=== PATIENT | female | born 1980 | race Caucasian/White ===

== ENCOUNTER 2016-09-12 18:31 | Emergency (ER) | payer OTHER ==
[2016-09-12] MEDS ORDERED: PENICILLIN BENZATHINE 1.2 MU 1.2 MU/2 ML SYG IM ONE (19:14)
--- NOTE | 2016-09-12 19:41 | ED.PDOC ---
History of Present Illness - General Chief Complaint: General Stated Complaint: medical clearance Time Seen by Provider: 09/12/16 18:34 Source: patient Exam Limitations: intoxication - History of Present Illness Initial Comments: Patient presents for medical clearance for her weekend admission to nursing home. She appears intoxicated and says that she drank some nyquil for a cold. She has had a URI for several days and a sore throat. No other complaints. Timing/Duration: other - 3 days for the sore throat Severity: moderate Improving Factors: nothing Worsening Factors: nothing Associated Symptoms: denies symptoms Allergies/Adverse Reactions: Allergies Acetaminophen [From Tylenol] Allergy (Unknown, Unverified 07/21/16 12:06) Hydrocodone Allergy (Unknown, Unverified 07/21/16 12:06) Home Medications: Ambulatory Orders Blue Pill For Anxiety And Blood Pressure 09/12/16 Medroxyprogesterone Acetate (C [Depo-Provera Contraceptiv] 150 mg IM 09/12/16 Paxil 09/12/16 Xanax 09/12/16 Review of Systems - Review of Systems Constitutional: States: no symptoms reported EENTM: States: see HPI Respiratory: States: no symptoms reported Cardiology: States: no symptoms reported Gastrointestinal/Abdominal: States: no symptoms reported Genitourinary: States: no symptoms reported Musculoskeletal: States: no symptoms reported Skin: States: no symptoms reported Neurological: States: no symptoms reported Endocrine: States: no symptoms reported Hematologic/Lymphatic: States: no symptoms reported Past Medical History (General) - Patient Medical History Hx Seizures: No Hx Stroke: No Hx Dementia: No Hx Asthma: No Hx of COPD: No Hx Cardiac Disorders: No Hx Congestive Heart Failure: No Hx Pacemaker: No Hx Hypertension: No Hx Thyroid Disease: No Hx Diabetes: No Hx Gastroesophageal Reflux: No Hx Renal Disease: No Hx Cancer: No Hx of HIV: No Hx Hepatitis C: No Hx MRSA: No - Vaccination History Hx Tetanus, Diphtheria Vaccination: No Hx Influenza Vaccination: No Hx Pneumococcal Vaccination: No - Social History Hx Tobacco Use: Yes Hx Chewing Tobacco Use: No Hx Alcohol Use: No Hx Substance Use: No Hx Substance Use Treatment: No Hx Depression: No Hx Physical Abuse: No Hx Emotional Abuse: No Hx Suspected Abuse: No - Female History Patient is a Female of Child Bearing Age (10 -59 yrs old): Yes Patient : No - Triage Comment ED Triage Comment: takes depo shot Family Medical History - Family History Mother Family History: No Known Physical Exam - Physical Exam General Appearance: Alert Eye Exam: bilateral normal Ears, Nose, Throat: normal ENT inspection Neck: non-tender, full range of motion, supple Respiratory: lungs clear Cardiovascular/Chest: regular rate, rhythm Gastrointestinal/Abdominal: normal bowel sounds, non tender, soft Back Exam: normal inspection, no CVA tenderness Extremity: normal range of motion, non-tender, normal inspection Neurologic: no motor/sensory deficits Skin Exam: normal color Lymphatic: no adenopathy Progress - Progress Progress: 09/12/16 19:52 BAL 279 serum salicylates and acetominophen negative. Departure - Departure Clinical Impression: Alcoholic intoxication Disposition: [facility] Condition: Good Departure Forms: ED Discharge - Pt. Copy, Patient Portal Self Enrollment Diet: resume usual diet Activity: increase activity as tolerated Home Medications: Ambulatory Orders Blue Pill For Anxiety And Blood Pressure 09/12/16 Medroxyprogesterone Acetate (C [Depo-Provera Contraceptiv] 150 mg IM 09/12/16 Paxil 09/12/16 Xanax 09/12/16 Additional Instructions: Continue current medication regimen.
[2016-09-12 20:18] VITALS: BP 113/81; TEMP 97.3; O2SAT 95
== END 2016-09-12 20:17 ==
LOC: ER 18:31
DX: Z02.89 Encounter for other administrative examinations (principal); F10.129 Alcohol abuse with intoxication, unspecified; Y90.8 Blood alcohol level of 240 mg/100 ml or more; Z88.6 Allergy status to analgesic agent; Z87.891 Personal history of nicotine dependence; Z79.899 Other long term (current) drug therapy
CPT/HCPCS: 80320; 80329; 87880; J0561

== ENCOUNTER 2016-12-31 21:45 | Emergency (ER) | payer OTHER ==
[2016-12-31 22:03] VITALS: O2SAT 97
--- NOTE | 2016-12-31 22:15 | ED.PDOC ---
History of Present Illness - General Chief Complaint: Skin/Abrasion/Tear Stated Complaint: abcess to left forehead Time Seen by Provider: 12/31/16 22:08 Source: patient Exam Limitations: no limitations - History of Present Illness Initial Comments: Tiffany Chen 36 y/o female noted redness and swelling 3 days ago which gradually got worse noting swelling on her upper part of face. Timing/Duration: other - 3 days ago Severity: moderate Location: face - forehead Improving Factors: nothing Worsening Factors: nothing Associated Symptoms: other - abscess forehead Allergies/Adverse Reactions: Allergies Acetaminophen [From Tylenol] Allergy (Unknown, Verified 12/31/16 22:03) Hydrocodone Allergy (Unknown, Verified 12/31/16 22:03) Home Medications: Ambulatory Orders Medroxyprogesterone Acetate (C [Depo-Provera Contraceptiv] 150 mg IM 09/12/16 ALPRAZolam [Xanax] 0.5 mg PO TID 12/31/16 Ciprofloxacin [Cipro] 500 mg PO BID 12/31/16 Doxycycline Hyclate 100 mg PO BID #20 cap 12/31/16 Ibuprofen [Motrin] 400 mg PO PRN 12/31/16 Omeprazole Magnesium [Prilosec Otc] 20 mg PO QAM 12/31/16 PARoxetine HCL [Paxil] 20 mg PO DAILY 12/31/16 Propranolol HCl [Inderal] 20 mg PO BID 12/31/16 Tramadol HCl 50 mg PO TID PRN #7 tab 12/31/16 Review of Systems - Review of Systems Constitutional: States: no symptoms reported EENTM: States: no symptoms reported Respiratory: States: no symptoms reported Cardiology: States: no symptoms reported Gastrointestinal/Abdominal: States: no symptoms reported Genitourinary: States: no symptoms reported Musculoskeletal: States: no symptoms reported Skin: States: see HPI Neurological: States: no symptoms reported Past Medical History (General) - Patient Medical History Hx Seizures: No Hx Stroke: No Hx Dementia: No Hx Asthma: No Hx of COPD: No Hx Cardiac Disorders: No Hx Congestive Heart Failure: No Hx Pacemaker: No Hx Hypertension: No Hx Thyroid Disease: No Hx Diabetes: No Hx Gastroesophageal Reflux: No Hx Renal Disease: No Hx Cancer: No Hx of HIV: No Hx Hepatitis C: No Hx MRSA: No Surgical History: no surgical history - Vaccination History Hx Tetanus, Diphtheria Vaccination: No Hx Influenza Vaccination: No Hx Pneumococcal Vaccination: No Immunizations Up to Date: No - Social History Hx Tobacco Use: Yes Hx Chewing Tobacco Use: No Hx Alcohol Use: Yes Hx Substance Use: No Hx Substance Use Treatment: No Hx Depression: No Feels Threatened In Home Enviroment: No Feels Threatened In a Relationship: No Hx Physical Abuse: No Hx Emotional Abuse: No Hx Suspected Abuse: No - Female History Patient is a Female of Child Bearing Age (10 -59 yrs old): Yes Patient : No - Triage Comment ED Triage Comment: is on Depo shot, LMP 3 years ago Family Medical History - Family History Mother Family History: No Known Living Status: Still Living Physical Exam - Physical Exam General Appearance: Alert, No apparent distress Eyes, Ears, Nose, Throat Exam: PERRL/EOMI, normal ENT inspection, TMs normal Neck: non-tender, full range of motion, supple Cardiovascular/Chest: normal peripheral pulses, regular rate, rhythm, no murmur Respiratory: chest non-tender, lungs clear, normal breath sounds Gastrointestinal/Abdominal: normal bowel sounds, non tender, soft Back Exam: normal inspection, no CVA tenderness Extremity: normal range of motion Neurologic: alert, oriented x 3 Skin Exam: warm/dry Skin Problem Location: face - forehead Skin Character: abscess, erythema, tenderness Lymphatic: no adenopathy Progress - Results/Orders Results/Orders: 12/31/16 23:28 WOUND CULTURE Stat Laboratory Results WBC 7.9 K/mm3 (4.8-10.8) 12/31/16 22:40 RBC 4.06 M/mm3 (4.20-5.40) L 12/31/16 22:40 Hgb 12.8 gm/dL (12.0-16.0) 12/31/16 22:40 Hct 38.2 % (36.0-47.0) 12/31/16 22:40 MCV 93.9 fl (81.0-99.0) 12/31/16 22:40 MCH 31.5 pg (27.0-31.0) H 12/31/16 22:40 MCHC 33.5 g/dL (33.0-37.0) 12/31/16 22:40 RDW 12.4 % (11.5-14.5) 12/31/16 22:40 Plt Count 265 K/mm3 (130-400) 12/31/16 22:40 MPV 7.3 fl (7.40-10.4) L 12/31/16 22:40 Absolute Neuts (auto) 5.10 K/uL (1.8-6.8) 12/31/16 22:40 Absolute Lymphs (auto) 2.20 K/uL (1.0-3.4) 12/31/16 22:40 Absolute Monos (auto) 0.50 K/uL (0.2-0.8) 12/31/16 22:40 Absolute Eos (auto) 0.10 K/uL (0.0-0.4) 12/31/16 22:40 Absolute Basos (auto) 0.10 K/uL (0.0-0.1) 12/31/16 22:40 Neutrophils % 64.2 % (42.0-78.0) 12/31/16 22:40 Lymphocytes % 27.2 % (20.0-50.0) 12/31/16 22:40 Monocytes % 5.8 % (2.0-9.0) 12/31/16 22:40 Eosinophils % 1.6 % (1.0-5.0) 12/31/16 22:40 Basophils % 1.2 % (0.0-2.0) 12/31/16 22:40 Vital Signs - 24 hr 12/31/16 21:59 Temperature 98.7 F Pulse Rate [ 71 monitor] Respiratory 16 Rate Blood Pressure 142/99 [Left Arm] O2 Sat by Pulse 97 Oximetry Departure - Departure Clinical Impression: Abscess or cellulitis of forehead Time of Disposition: 23:30 Disposition: [facility] Condition: Good Departure Forms: ED Discharge - Pt. Copy, Patient Portal Self Enrollment Instructions: DI for Incision and Drainage of a Skin Abscess, DI for Skin Abscess Referrals: David Hernandez MD [Primary Care Provider] - 1-2 Weeks Prescriptions: Doxycycline Hyclate 100 mg PO BID #20 cap Tramadol HCl 50 mg PO TID PRN #7 tab PRN Reason: Pain Home Medications: Ambulatory Orders Medroxyprogesterone Acetate (C [Depo-Provera Contraceptiv] 150 mg IM 09/12/16 ALPRAZolam [Xanax] 0.5 mg PO TID 12/31/16 Ciprofloxacin [Cipro] 500 mg PO BID 12/31/16 Doxycycline Hyclate 100 mg PO BID #20 cap 12/31/16 Ibuprofen [Motrin] 400 mg PO PRN 12/31/16 Omeprazole Magnesium [Prilosec Otc] 20 mg PO QAM 12/31/16 PARoxetine HCL [Paxil] 20 mg PO DAILY 12/31/16 Propranolol HCl [Inderal] 20 mg PO BID 12/31/16 Tramadol HCl 50 mg PO TID PRN #7 tab 12/31/16 Additional Instructions: RETURN TO [facility] FOR WOUND RECHECK and PACKING REMOVAL 01/01/2017 at 1700H
[2016-12-31] MEDS ORDERED: LIDOCAINE 1% 10 ML VIAL INJ ONE (22:25)
[2016-12-31] MEDS ORDERED: LIDOCAINE 2% 100 MG/5 ML SYG IV ONE (22:25)
[2016-12-31] MEDS ORDERED: CLINDAMYCIN PHOSPHATE 150 MG/ML VIAL IM ONE (22:27)
[2016-12-31] MEDS ORDERED: CLINDAMYCIN HCL CAP 150 MG CAP PO ONE (22:28)
[2016-12-31] MEDS ORDERED: DOXYCYCLINE HYCLATE CAP 100 MG CAP PO ONE (22:29)
[2016-12-31] MEDS ORDERED: TETANUS,DIPHTHERIA,PERTUSSIS 1 EA SYG IM ONE (22:34)
[2016-12-31] MEDS ORDERED: MORPHINE SULFATE INJ 10 MG/ML VIAL IM ONE (22:49)
[2016-12-31] MEDS ORDERED: MORPHINE SULFATE INJ 10 MG/ML VIAL ONE (22:51)
[2016-12-31] MEDS ORDERED: NEOMYCIN-BACITRACIN-POLYMYXIN 0.9 GM UD TOP ONE (23:12)
[2016-12-31] MEDS ORDERED: DOXYCYCLINE TAB (ER DISPENSE) 100 MG CAP PO ONE (23:29)
[2016-12-31 23:53] VITALS: BP 137/91; TEMP 98.4
== END 2016-12-31 23:50 ==
LOC: ER 21:45
DX: L02.01 Cutaneous abscess of face (principal); Z88.6 Allergy status to analgesic agent; Z87.891 Personal history of nicotine dependence; Z23 Encounter for immunization
CPT/HCPCS: 36415; 85025; 87070; 87077; 87186; J2270; J3490

== ENCOUNTER → 2020-06-07 | Outpatient (CLI) | payer SELFPAY | LOC: YCFC.O 09:17 | PROVIDERS: ATTEND Nurse Practitioner Family | DX: Z03.818 Encounter for observation for suspected exposure to other biological agents ruled out (principal); Z20.828 Contact with and (suspected) exposure to other viral communicable diseases ==

== ENCOUNTER → 2020-06-15 | Outpatient (CLI) | payer OTHER | LOC: YCFC.O 09:40 | PROVIDERS: ATTEND Nurse Practitioner Family | DX: Z03.818 Encounter for observation for suspected exposure to other biological agents ruled out (principal); Z20.818 Contact with and (suspected) exposure to other bacterial communicable diseases ==